=== PATIENT | male | born 1955 | race Caucasian/White ===

== ENCOUNTER → 2018-02-15 | Outpatient (CLI) | payer MEDICARE, OTHER ==
[2015-10-09 11:30] VITALS: BP 105/61
[~2018-02-15] MED LIST: ALBU2.5V8 INH; AMIT25TA PO; ATOR40TA59 PO; DICL75TA PO; DOCU-109 PO; DULO60CA6 PO; GABA800T3 PO; LISI1TAB5 PO; LORA1TAB PO; METH-38 PO; MIRT15TA3 PO; NAPR500T8 PO; OXYC1TAB15 PO; TEST200V3 IM; TRAM50TA PO
--- NOTE | 2018-02-15 14:03 | RAD ---
EXAM: Lumbosacral spine, 6 views. HISTORY: Pain. COMPARISON: None. FINDINGS: Frontal, lateral, bilateral oblique, flexion and extension and coned sacral views of the lumbar spine are obtained. There is moderate levoscoliosis centered at L3. There is severe degenerative endplate remodeling with disc space narrowing and osteophytosis along the right aspect of L3-L4. This corresponds with the level of maximum scoliotic curvature. There is slight sacralization of the left L5 transverse process and articulation with the underlying sacrum, a normal variant. There is facet arthropathy at all levels. There is no significant listhesis. There is no fracture. IMPRESSION: 1. Moderate levoscoliosis centered at L3. There is severe degenerative change along the right aspect of L3-L4, corresponding with the level of maximum sclerotic curvature. 2. Multilevel degenerative change throughout the remainder of the lumbar spine, described above. Electronically signed by: Leatha Argueta MD (02/15/2018 1:58 PM) [facility]
== END | disposition home or self-care (01) ==
LOC: RAD 12:19
PROVIDERS: ATTEND Neurological Surgery
DX: M47.26 Other spondylosis with radiculopathy, lumbar region (principal); M41.86 Other forms of scoliosis, lumbar region; M43.27 Fusion of spine, lumbosacral region; M12.88 Other specific arthropathies, not elsewhere classified, other specified site; M48.061 Spinal stenosis, lumbar region without neurogenic claudication
CPT/HCPCS: 72114

== ENCOUNTER → 2018-03-13 | Outpatient (CLI) | payer MEDICARE, OTHER ==
[2015-10-09 11:30] VITALS: BP 105/61
[~2018-03-13] MED LIST changes: -GABA800T3 PO; +GABA800T5 PO; +OXYC1TAB22 PO
--- NOTE | 2018-03-13 11:27 | EKG ---
[facility] [address] [place] [address] Test Date: 2018-03-13 Test Time: 11:24:52 Pat Name: JERI BUTLER Department: Room: Gender: M Primer Boxer: TV : 1955 Requested By: NARINDER WATTS Order Number: [id number] Reading MD: Clay Avendano MD Measurements Intervals [place] Rate: 65 P: [place]: QRS: 41 QRSD: 86 T: 61 QT: 394 QTc: 410 Interpretive Statements SR PAC'S NON-SPECIFIC ST/T CHANGES Electronically Signed On 03-14-2018 10:41:05 [employer] by Clay Avendano MD
[2018-03-13 12:02] LABS: BASO # 0.1 x10^3/uL (0.0-0.2); BASO % 1 % (0-3); EOS # 0.3 x10^3/uL (0.0-0.7); EOS % 4 % (0-3); HEMATOCRIT 55.8 % (39.0-53.0); HEMOGLOBIN 18.7 g/dL (13.0-17.5); LYMPH # 1.4 x10^3/uL (1.0-4.8); LYMPH % 21 % (24-48); MEAN CORPUSCULAR HEMOGLOBIN 30 pg (25-35); MEAN CORPUSCULAR HGB CONC 34 g/dL (31-37); MEAN CORPUSCULAR VOLUME 88 fL (79-100); MONO # 0.5 x10^3/uL (0.0-1.1); MONO % 8 % (0-9); NEUT # 4.5 x10^3uL (1.8-7.7); NEUT % 67 % (31-73); PLATELET COUNT 188 x10^3/uL (140-400); RED BLOOD COUNT 6.33 x10^6/uL (4.30-5.70); RED CELL DISTRIBUTION WIDTH 14.5 % (11.5-14.5); WHITE BLOOD COUNT 6.8 x10^3/uL (4.0-11.0)
[2018-03-13 12:12] LABS: PROTHROMBIN TIME PATIENT 13.3 SEC (11.7-14.0)
[2018-03-13 12:48] LABS: ALBUMIN 3.7 g/dL (3.4-5.0); CALCIUM 9.5 mg/dL (8.5-10.1); CREATININE 0.9 mg/dL (0.7-1.3); GFR 85.8; POTASSIUM 3.9 mmol/L (3.5-5.1); TOTAL BILIRUBIN 0.8 mg/dL (0.2-1.0); TOTAL PROTEIN 7.4 g/dL (6.4-8.2)
--- NOTE | 2018-03-13 14:20 | RAD ---
Chest, PA and Lateral: Technique: PA and lateral views of the chest were obtained. History: Preop lumbar surgery.. Comparison: None. Findings: The heart and pulmonary vasculature appear within normal limits. The lungs are clear. The pleural margins are clear. Moderate degenerative changes thoracic spine. Impression: No acute chest process is seen. Electronically signed by: Bassem Combs MD (03/13/2018 2:16 PM) [place] [id number]
--- NOTE | 2018-03-14 14:27 | NUR ---
PATIENT'S EKG 03/13/2018 WAS AT [facility] AND WAS FEELING DIZZY WHEN LAYING DOWN AND HE WENT TO SEE YESTERDAY AFTER PRE - TESTING AND BROUGHT COPY OF EKG FOR PCP TO REVIEW. FAXED PRE OP LABS AND CXR REPORTS TO DR. VICTORIA'S OFFICE 03/5018 AT 0902. CALLED AT 1220 03/14/2018 AND SAID PATIENT IS CLEAR FOR SURGERY. HE FAXED MEDICAL CLEARANCE NOTES. FAXED IT TO 'S ' OFFICE AT 0249 03/14/2018. JUST LEFT A MESSAGE ON BENTLEY DELEON RN IN 'S OFFICE OF ABOVE.
== END | disposition home or self-care (01) ==
LOC: SURGPAT 10:43
PROVIDERS: ATTEND Neurological Surgery
DX: Z01.818 Encounter for other preprocedural examination (principal); M48.061 Spinal stenosis, lumbar region without neurogenic claudication; M54.16 Radiculopathy, lumbar region; M41.86 Other forms of scoliosis, lumbar region; M47.894 Other spondylosis, thoracic region; Z88.5 Allergy status to narcotic agent
CPT/HCPCS: 36415; 71046; 80053; 85025; 85610; 85730; 87641; 93005

== ENCOUNTER 2018-04-05 07:48 | Inpatient (IN) | payer MEDICARE, OTHER ==
--- NOTE | 2018-04-04 16:24 | PREOP HP ---
DATE OF SERVICE: 04/05/2018 HISTORY OF PRESENT ILLNESS: The patient is a pleasant 63-year-old who has had a long history of difficulties with his lower back. He reports that he underwent surgery in and is well, underwent lumbar microdecompressive surgery in 09/2015. His current problem is progressive lower back pain on the right side, which radiates into his right leg diffusely. The pain is largely in the buttock and lateral thigh and leg to include his entire right foot. Standing and walking markedly increases his pain. Sitting gives him some relief. 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 He uses a 10-pound lifting restriction to help him with his back. He tries to continually support his back with his hands. He says when his pain is severe, he can sit for a few minutes and gain some relief and then is able to stand again for a short time. He has been taking oxycodone 10. He uses a lumbar brace, which he says does not feel as effective. He says that the more he stands, the worst his right leg pain becomes. PAST MEDICAL HISTORY: Arthritis, asthma and hypertension. PAST SURGICAL HISTORY: Lumbar surgery in , eye surgery in lumbar decompression L3-L4 and L4-L5 in 09/2015. FAMILY HISTORY: Cancer, heart problems and disease, hypertension, ID at an early age and spine problems. SOCIAL HISTORY: Single. Does not exercise. Smokes 1 pack per day and has for 20 years. Quit drinking 4 years ago. ALLERGIES: No known drug allergies. CURRENT MEDICATIONS: Percocet, atorvastatin, duloxetine, lisinopril, gabapentin, lorazepam, tramadol, diclofenac, naproxen, amitriptyline, mirtazapine, Ventolin, testosterone and [place]. REVIEW OF SYSTEMS: A 12-point review of systems was obtained and is noncontributory except for that mentioned above. PHYSICAL EXAMINATION: NEUROSURGERY EXAMINATION: GENERAL: He is alert, pleasant, in no acute distress as long as he is sitting. HEAD: Normocephalic and atraumatic. SKIN: Warm and dry, well-healed lumbar incision. MUSCULOSKELETAL: Lumbar paraspinal muscle bulk is normal, restricted range of motion of lumbar spine, moderate tenderness of lower lumbar spine with palpation, normal range of motion of the lower extremities bilaterally. EXTREMITIES: No clubbing, cyanosis or edema. NEUROLOGIC: Alert and oriented x 3, normal recent and remote memory, strength 5/5 in bilateral lower extremities except for 4+/5 right hip flexor, sensory was intact to light touch in the lower extremities bilaterally except for diffuse decrease involving the lateral thigh and anterior lateral posterior leg on the right. Reflexes were trace and symmetric in bilateral lower extremities, negative straight leg raising bilaterally, markedly forward stooped gait tending to lean to the right. IMAGING: I reviewed plain lumbar spine films and a lumbar MRI scan. There is a transitional anatomy such that L5-S1 on the plain lumbar spine film is identified as the S1-S2 on the MRI scan. Using the same nomenclature of the MRI scan, there is scoliotic deformity, which is centered at L4 as well seen on the plain lumbar spine films. At L4-L5 and L5-S1, there are postoperative changes on the right side. He has developed severe lumbar spinal stenosis at L4-L5. There is moderate stenosis at L5-S1. Changes at L4-L5 are worsened considerably when compared to the previous scan. ASSESSMENT/ PLAN: The patient is having a relatively severe right radiculopathy along with markedly increasing back pain. On imaging studies in addition to marked right-sided scoliotic deformity, he has a severe lumbar spinal stenosis at L4-L5 and moderate stenosis at L5-S1. He will require laminectomy at L4-L5 to fully decompress the dura and nerve root at that level. Because of scoliotic deformity, he is also going to require an instrumented fusion extending from L4-S1 with posterior instrumentation and posterolateral fusion. There is severe foraminal narrowing at L4-L5 and I would accompany the posterior instrumented fusion with anterior diskectomy and fusion at that level. I did speak with him about the surgery and the risks. I spoke about the expected postoperative course. He understands. We will make the arrangements. NARINDER WATTS MD DR: JOSELO/lynda JOB#: [id number] / [id number] PUSH[facility]
[~2018-04-05] VITALS: Ht 177.8 cm; Wt 88.5 kg
[2018-04-05] VITALS (9 sets, daily range): BP systolic 87–129; BP diastolic 51–76
[~2018-04-05 07:48] MED LIST changes: +BACITRACIN 50,000 UNIT in IV NORMAL SALINE 1000ML BAG 1,000 ML IRR ONE; +BUPIVAC MPF-EPI 0.5%-1:200000 30 ML VIAL. ONE; +GELATIN SPONGE SIZE 12-7MM SPONGE. TP ONE; +HYDROmorphone 2 MG/ML VIAL IV PRN; +KETOROLAC 60 MG/2 ML INJ FOR OR. ONE; +LIDOCAINE 1% PF 2 ML VIAL. ID PRN; +ONDANSETRON PF 4 MG/2 ML VIAL. IV PRN; +PROCHLORPERAZINE 10 MG/2 ML VIAL. IV PRN; +THROMBIN TOPICAL 20,000 UNIT SPRAY.SYRN KIT TP ONE; +fentaNYL PF VIAL 100 MCG/2 ML VIAL IV PRN
[2018-04-05] MEDS: IV RINGERS,LACTATED 1000ML 1,000 ML IV SCH ×2 (08:44→18:01)
[2018-04-05] MEDS ORDERED: ROCURONIUM 50 MG/5 ML VIAL. ONE (10:23)
[2018-04-05] MEDS ORDERED: PROPOFOL 50 ML IV ONE ×3 (10:24→15:42)
[2018-04-05] MEDS ORDERED: LIDOCAINE 2% PF 5 ML VIAL. ONE (10:24)
[2018-04-05] MEDS ORDERED: DEXAMETHASONE SOD PHOS 20 MG/5 ML VIAL. ONE (10:24)
[2018-04-05] MEDS ORDERED: REMIFENTANIL 2 MG VIAL. IV ONE ×2 (10:24→13:37)
[2018-04-05] MEDS ORDERED: PROPOFOL 20 ML IV ONE (10:24)
[2018-04-05] MEDS ORDERED: fentaNYL PF VIAL 250 MCG/5 ML VIAL ONE (10:24)
[2018-04-05] MEDS ORDERED: PHENYLEPHRINE 10 MG/ML VIAL. ONE ×2 (10:24)
[2018-04-05] MEDS ORDERED: ONDANSETRON PF 4 MG/2 ML VIAL. ONE (10:24)
[2018-04-05] MEDS ORDERED: MIDAZOLAM HCL/PF 2 MG/2 ML VIAL. ONE (10:24)
--- NOTE | 2018-04-05 10:31 | RAD ---
CT study of the lumbar spine without contrast Clinical indications: Lumbar stenosis. Low back pain. TECHNIQUE: Noncontrast helical CT scanning of the lumbar spine was performed. Multiplanar 2-D reconstructions were generated. PQRS compliance Statement One or more of the following individualized dose reduction techniques were utilized for this study: 1. Automated exposure control 2. Adjustment of the mA and/or kV according to patient size 3. Use of iterative reconstruction technique COMPARISON: No previous CT study. FINDINGS: There is moderate levoscoliosis of the lumbar spine. There is mild lateral subluxation of L3 on L4 of 6 mm and mild left lateral subluxation of L4 and L5 7 mm. There is a pelvic tilt downward towards the right side. The transverse processes are intact. No compression fracture or discitis or lytic process is evident. No anterolisthesis is seen. There is a unilateral spondylolysis of the right side of L4. At T12-L1, no focal disc protrusion or spinal canal stenosis or neural foraminal narrowing is seen. At L1-L2, there is a mild diffuse disc protrusion with a more prominent left side extending into the left lateral neural foramen. Mild narrowing of left neural foramen. No significant spinal canal stenosis is evident. At L2-L3, mild retrolisthesis is seen. There is a mild diffuse disc protrusion and degenerative endplate spurring. There is facet arthropathy and ligamentum flavum hypertrophy. These findings combine to form a mild spinal canal stenosis. Mild narrowing of the neural foramina is seen bilaterally. At L3-L4, moderate to severe degenerative disc space narrowing and moderate degenerative endplate spurring is seen. Degenerative vacuum disc phenomenon is seen. There is severe subchondral sclerosis and moderate subchondral cyst formation. There is a moderate diffuse disc protrusion and moderate degenerative endplate spurring. There is significant facet arthropathy and ligamentum flavum hypertrophy. These findings combine to form a moderate to severe spinal canal stenosis. There is moderate narrowing of the neural foramina bilaterally. At L4-5, moderate degenerative disc space narrowing and moderate degenerative endplate spurring is seen. Degenerative vacuum disc phenomenon is seen. There is focal protrusion of herniated vacuum disc material within the right side of the spinal canal including the lateral recess just posterior to the L4 vertebral body extending into the right neural foramen. As mentioned previously, there is a unilateral right-sided spondylolysis of L4. There is prominent facet arthropathy bilaterally along with ligamentum flavum hypertrophy. These findings combine to form a severe spinal canal stenosis. There is severe narrowing of the left neural foramen and moderate narrowing of the right neural foramen. At L5-S1, there is mild diffuse disc protrusion and degenerative endplate spurring more prominent on the right side which extends into the inferior aspect of the right neural foramen. There is moderate narrowing of the right neural foramen. There is mild narrowing of the left neural foramen. Facet arthropathy is seen at this level. Ligamentum flavum hypertrophy is seen. These findings combine to form a mild spinal canal stenosis. There is degenerative osteoarthritis of both SI joints without erosive arthropathy or ankylosis. No insufficiency fracture of the sacrum is seen. IMPRESSION: Moderate levoscoliosis. Degenerative lumbar spondylosis resulting in multilevel spinal canal stenosis and neural foraminal narrowing as discussed above. See discussion above for each level. Unilateral spondylolysis on the right side of L4. No anterolisthesis of L4-5 is seen. Herniation of vacuum disc material on the right side at L4-5. No compression fracture or discitis or lytic process is seen. Electronically signed by: Demetrius Patel MD (04/05/2018 10:28 AM) [facility]
[2018-04-05] MEDS ORDERED: GLYCOPYRROLATE 1 MG/5 ML VIAL. ONE (12:06)
[2018-04-05] MEDS ORDERED: ceFAZolin SODIUM 1 GM VIAL ONE ×2 (15:10)
[2018-04-05] MEDS ORDERED: GELATIN SPONGE SIZE 12-7MM SPONGE. TP ONE ×2 (15:30→17:15)
[2018-04-05] MEDS ORDERED: REMIFENTANIL 1 MG VIAL. IV ONE (16:51)
[2018-04-05] MEDS ORDERED: POTASSIUM CL 20MEQ D5-0.45NACL 1,000 ML IV SCH (17:04)
[2018-04-05] MEDS ORDERED: diphenhydrAMINE 50 MG/ML VIAL IV PRN (17:15)
[2018-04-05] MEDS ORDERED: ACETAMINOPHEN 325 MG TABLET. PO PRN (17:15)
[2018-04-05] MEDS ORDERED: MAGNESIUM HYDROXIDE 2,400 MG/30 ML ORAL.SUSP. PO PRN (17:15)
[2018-04-05] MEDS ORDERED: ZOLPIDEM 5 MG TABLET. PO PRN (17:15)
[2018-04-05] MEDS ORDERED: NALOXONE 0.4 MG/ML VIAL. IV PRN (17:15)
[2018-04-05] MEDS ORDERED: ALBUTEROL SULFATE 2.5 MG/3 ML NEBU. INH PRN (17:15)
[2018-04-05] MEDS ORDERED: CALCIUM CARBONATE 500 MG TAB.CHEW PO PRN (17:15)
[2018-04-05] MEDS ORDERED: MAG HYDROX/ALUMINUM HYD/SIMETH 30 ML ORAL.SUSP PO PRN (17:15)
[2018-04-05] MEDS ORDERED: ONDANSETRON PF 4 MG/2 ML VIAL. IV PRN ×2 (17:15→18:15)
[2018-04-05] MEDS ORDERED: 0.9 % SODIUM CHLORIDE 10 ML DISP.SYRIN. IV PRN (17:15)
[2018-04-05] MEDS ORDERED: diphenhydrAMINE HCL 25 MG CAPSULE PO PRN (17:15)
[2018-04-05] MEDS ORDERED: IV RINGERS,LACTATED 1000ML 1,000 ML IV SCH (18:03)
[2018-04-05] MEDS ORDERED: PROCHLORPERAZINE 10 MG/2 ML VIAL. IV PRN (18:15)
[2018-04-05] MEDS ORDERED: LIDOCAINE 1% PF 2 ML VIAL. ID PRN (18:15)
[2018-04-05] MEDS: fentaNYL PF VIAL 100 MCG/2 ML VIAL IV PRN ×3 (18:27→20:53)
[2018-04-05] MEDS: PROCHLORPERAZINE 10 MG/2 ML VIAL. IV PRN ×2 (18:27→18:42)
[2018-04-05] MEDS ORDERED: HYDROmorphone 2 MG/ML VIAL IV PRN (18:30)
[2018-04-05] MEDS ORDERED: fentaNYL PF VIAL 100 MCG/2 ML VIAL IV PRN (18:30)
--- NOTE | 2018-04-05 19:00 | NUR ---
Rec'd from PACU. "Not sure where I'm at or what I'm doing now." C/o back pain, falls asleep quickly. Assisted to right side per his request. Midline lumbar dressing needs reinforcing. Has red horizontal line across chest, eyes are puffy. VSS. Call light in reach.
[2018-04-05] MEDS: METHOCARBAMOL 750 MG TABLET PO SCH (20:53)
[2018-04-05] MEDS: DOCUSATE SODIUM 100 MG CAPSULE. PO SCH (20:53)
[2018-04-05] MEDS: GABAPENTIN 400 MG CAPSULE. PO SCH (20:53)
[2018-04-05] MEDS: ATORVASTATIN CALCIUM 40 MG TABLET. PO SCH (20:53)
[2018-04-05] MEDS: MIRTAZAPINE 15 MG TABLET PO SCH (21:06)
[2018-04-05] MEDS: ceFAZolin SODIUM 1 GM in IV DEXTROSE 5% 50 ML IV SCH (22:36)
[2018-04-06] VITALS (7 sets, daily range): BP systolic 84–112; BP diastolic 42–70
--- NOTE | 2018-04-06 06:06 | NUR ---
Stood at bedside to void, denies numbness to legs. Voided 550cc dark yellow urine. Demonstrates IS at 3000cc. Dressing is dry.
[2018-04-06] MEDS: ceFAZolin SODIUM 1 GM in IV DEXTROSE 5% 50 ML IV SCH ×2 (06:15→13:32)
[2018-04-06] MEDS: DULoxetine HCL 30 MG CAPSULE.DR PO SCH (08:14)
[2018-04-06] MEDS: GABAPENTIN 400 MG CAPSULE. PO SCH ×3 (08:14→20:54)
[2018-04-06] MEDS: hydroCHLOROthiazide 12.5 MG CAPSULE PO SCH (08:15)
[2018-04-06] MEDS: LISINOPRIL 20 MG TABLET PO SCH (08:15)
[2018-04-06] MEDS: METHOCARBAMOL 750 MG TABLET PO SCH ×3 (08:15→20:54)
[2018-04-06] MEDS: DOCUSATE SODIUM 100 MG CAPSULE. PO SCH ×2 (08:15→20:53)
[2018-04-06] MEDS: oxyCODONE/APAP 10/325 1 TAB TABLET PO PRN ×3 (08:16→19:43)
--- NOTE | 2018-04-06 12:34 | PDOC ---
PROGRESS NOTES Subjective Subjective POD #1 resting in bed has been up with PT back/ incisional pain , controlled with medications Objective Objective Vital Signs Date Time Temp Pulse Resp B/P (MAP) Pulse Ox O2 Delivery O2 Flow Rate FiO2 04/06/18 12:08 Room Air 04/06/18 11:13 98.5 76 16 92/48 (63) 98.5 04/06/18 06:32 94 04/05/18 20:53 2.0 Intake and Output 04/06/18 06:59 Intake Total 4663 ml Output Total 2050 ml Balance 2613 ml Intake Oral 240 ml IV Total 4000 ml Blood Product IV Normal Saline Flush 423 ml Output Urine Total 1650 ml Stool Total 0 ml Estimated Blood Loss 400 ml Physical Exam General: Alert, Oriented X3, Cooperative MUSCULOSKELETAL: Other Neuro: Normal speech, Other (Strength 5/5 in BLE) Skin: Other (Dressing C,D ,I, flat) Plan Plan of Care encouraged increased activity as tolerated PT Brace when up likely dc tomorrow Comment Review of Relevant I have reviewed the following items triston (where applicable) has been applied. Medications Current Medications Bacitracin 35546 unit/Sodium Chloride 1,000 ml @ 1,000 mls/hr 1X ONCE IRR Last administered on 04/05/18at 11:47; Start 04/05/18 at 06:00; Stop 04/05/18 at 06:59; Status DC Ondansetron HCl (Zofran) 4 mg PRN Q6HRS PRN IV NAUSEA/VOMITING; Start 04/05/18 at 07:00; Stop 04/05/18 at 18:00; Status DC Fentanyl Citrate (Fentanyl 2ml Vial) 25 mcg PRN Q5MIN PRN IV MILD PAIN; Start 04/05/18 at 07:00; Stop 04/05/18 at 18:00; Status DC Fentanyl Citrate (Fentanyl 2ml Vial) 50 mcg PRN Q5MIN PRN IV MODERATE TO SEVERE PAIN; Start 04/05/18 at 07:00; Stop 04/05/18 at 18:00; Status DC Ringer's Solution 1,000 ml @ 30 mls/hr Q24H IV Last administered on 04/05/18at 18:01; Start 04/05/18 at 07:00; Stop 04/05/18 at 18:10; Status DC Lidocaine HCl (Xylocaine-Mpf 1% 2ml Vial) 2 ml PRN 1X PRN ID PRIOR TO IV START ; Start 04/05/18 at 07:00; Stop 04/05/18 at 18:00; Status DC Hydromorphone HCl (Dilaudid) 0.5 mg PRN Q10MIN PRN IV SEV PAIN, Second choice; Start 04/05/18 at 07:00; Stop 04/05/18 at 18:00; Status DC Prochlorperazine Edisylate (Compazine) 5 mg PACU PRN PRN IV NAUSEA, MRX1; Start 04/05/18 at 07:00; Stop 04/05/18 at 18:00; Status DC Cefazolin Sodium/ Dextrose 50 ml @ 100 mls/hr 1X PREOP PRN IV PRIOR TO PROCEDURE Last administered on 04/05/18at 15:30; Start 04/05/18 at 06:00; Stop at 18:00; Status DC Bupivacaine HCl/ Epinephrine Bitart (Sensorcain-Mpf Epi 0.5%-[id number]) 30 ml STK -MED ONCE .ROUTE Last administered on 04/05/18at 11:47; Start 04/05/18 at 07:05 ; Stop 04/05/18 at 07:06; Status DC Ketorolac Tromethamine (Toradol For Or Only) 60 mg STK-MED ONCE .ROUTE Last administered on 04/05/18at 11:47; Start 04/05/18 at 07:05; Stop 04/05/18 at 07:06 ; Status DC Thrombin 20,000 unit STK-MED ONCE TP Last administered on 04/05/18at 11:47; Start 04/05/18 at 07:05; Stop 04/05/18 at 07:06; Status DC Gelatin (Gelfoam Size 12-7mm) 2 each 1X ONCE TP Last administered on at 11:47; Start 04/05/18 at 07:45; Stop 04/05/18 at 07:46; Status DC Rocuronium [place] (Zemuron) 50 mg STK-MED ONCE .ROUTE ; Start 04/05/18 at 10:23 ; Stop 04/05/18 at 10:24; Status DC Midazolam HCl (Versed) 2 mg STK-MED ONCE .ROUTE ; Start 04/05/18 at 10:24; Stop 04/05/18 at 10:25; Status DC Fentanyl Citrate (Fentanyl 5ml Vial) 250 mcg STK-MED ONCE .ROUTE ; Start at 10:24; Stop 04/05/18 at 10:25; Status DC Remifentanil HCl (Ultiva) 2 mg STK-MED ONCE IV ; Start 04/05/18 at 10:24; Stop 04/05/18 at 10:25; Status DC Propofol 50 ml @ As Directed STK-MED ONCE IV ; Start 04/05/18 at 10:24; Stop at 10:25; Status DC Propofol 20 ml @ As Directed STK-MED ONCE IV ; Start 04/05/18 at 10:24; Stop at 10:25; Status DC Lidocaine HCl (Lidocaine Pf 2% Vial) 5 ml STK-MED ONCE .ROUTE ; Start 04/05/18 at 10:24; Stop 04/05/18 at 10:25; Status DC Ondansetron HCl (Zofran) 4 mg STK-MED ONCE .ROUTE ; Start 04/05/18 at 10:24; Stop 04/05/18 at 10:25; Status DC Dexamethasone Sodium Phosphate (Decadron) 20 mg STK-MED ONCE .ROUTE ; Start at 10:24; Stop 04/05/18 at 10:25; Status DC Phenylephrine HCl (Vance-Synephrine Inj) 10 mg STK-MED ONCE .ROUTE ; Start at 10:24; Stop 04/05/18 at 10:25; Status DC Phenylephrine HCl (Vance-Synephrine Inj) 10 mg STK-MED ONCE .ROUTE ; Start at 10:24; Stop 04/05/18 at 10:25; Status DC Glycopyrrolate (Robinul) 1 mg STK-MED ONCE .ROUTE ; Start 04/05/18 at 12:06; Stop 04/05/18 at 12:07; Status DC Propofol 50 ml @ As Directed STK-MED ONCE IV ; Start 04/05/18 at 13:33; Stop at 13:34; Status DC Remifentanil HCl (Ultiva) 2 mg STK-MED ONCE IV ; Start 04/05/18 at 13:37; Stop 04/05/18 at 13:38; Status DC Cefazolin Sodium (Ancef) 1 gm STK-MED ONCE .ROUTE ; Start 04/05/18 at 15:10; Stop 04/05/18 at 15:11; Status DC Cefazolin Sodium (Ancef) 1 gm STK-MED ONCE .ROUTE ; Start 04/05/18 at 15:10; Stop 04/05/18 at 15:11; Status DC Gelatin (Gelfoam Size 12-7mm) 2 each 1X ONCE TP Last administered on at 17:09; Start 04/05/18 at 15:30; Stop 04/05/18 at 15:31; Status DC Propofol 50 ml @ As Directed STK-MED ONCE IV ; Start 04/05/18 at 15:42; Stop at 15:43; Status DC Remifentanil HCl (Ultiva) 1 mg STK-MED ONCE IV ; Start 04/05/18 at 16:51; Stop 04/05/18 at 16:52; Status DC Albuterol Sulfate (Ventolin Neb Soln) 8.5 mg PRN Q6HRS PRN INH SHORTNESS OF BREATH; Start 04/05/18 at 17:15 Atorvastatin Calcium (Lipitor) 40 mg QHS PO Last administered on 04/05/18at 20: 53; Start 04/05/18 at 21:00 Duloxetine HCl (Cymbalta) 60 mg DAILY PO Last administered on 04/06/18at 08:14; Start 04/06/18 at 09:00 Gabapentin (Neurontin) 800 mg TID PO Last administered on 04/06/18at 08:14; Start 04/05/18 at 21:00 Lisinopril (Prinivil) 20 mg DAILY PO Last administered on 04/06/18at 08:15; Start 04/06/18 at 09:00 Mirtazapine (Remeron) 15 mg QHS PO Last administered on 04/05/18at 21:06; Start 04/05/18 at 21:00 Gelatin (Gelfoam Size 12-7mm) 2 each 1X ONCE TP Last administered on at 17:17; Start 04/05/18 at 17:15; Stop 04/05/18 at 17:18; Status DC Fentanyl Citrate (Fentanyl 2ml Vial) 50 mcg PRN Q2HR PRN IV SEVERE PAIN Last administered on 04/05/18at 20:53; Start 04/05/18 at 17:15 Acetaminophen (Tylenol) 650 mg PRN Q6HRS PRN PO MILD PAIN / TEMP; Start at 17:15 Al Hydroxide/Mg Hydroxide (Mylanta Plus Xs) 30 ml PRN Q3HRS PRN PO HEARTBURN / GAS; Start 04/05/18 at 17:15 Calcium Carbonate/ Glycine (Tums) 500 mg PRN Q3HRS PRN PO INDIGESTION; Start at 17:15 Diphenhydramine HCl (Benadryl) 25 mg PRN Q6HRS PRN PO ITCHING; Start 04/05/18 at 17:15 Diphenhydramine HCl (Benadryl) 25 mg PRN Q6HRS PRN IV ITCHING; Start 04/05/18 at 17:15 Zolpidem Tartrate (Ambien) 5 mg PRN QHS PRN PO INSOMNIA, MAY REPEAT IN 1HR; Start 04/05/18 at 17:15 Naloxone HCl (Narcan) 0.1 mg PRN Q2MIN PRN IV ADMIN; Start 04/05/18 at 17:15 Sodium Chloride (Normal Saline Flush) 3 ml QSHIFT PRN IV AFTER MEDS AND BLOOD DRAWS; Start 04/05/18 at 17:15 Potassium Chloride/Dextrose/ Sod Cl 1,000 ml @ 75 mls/hr [id number] IV Last administered on 04/05/18at 20:49; Start 04/05/18 at 17:04; Stop 04/06/18 at 08:24 ; Status DC Methocarbamol (Robaxin) 750 mg TID PO Last administered on 04/06/18at 08:15; Start 04/05/18 at 21:00 Docusate Sodium (Colace) 100 mg BID PO Last administered on 04/06/18at 08:15; Start 04/05/18 at 21:00 Magnesium Hydroxide (Milk Of Magnesia) 2,400 mg PRN Q12HR PRN PO CONSTIPATION; Start 04/05/18 at 17:15 Ondansetron HCl (Zofran) 4 mg PRN Q6HRS PRN IV NAUESA, 1ST CHOICE; Start at 17:15 Cefazolin Sodium 1 gm/Dextrose 50 ml @ 100 mls/hr Q8HRS IV Last administered on 04/06/18at 06:15; Start 04/05/18 at 22:00; Stop 04/06/18 at 14:29 Oxycodone/ Acetaminophen (Percocet 10/325) 1 tab PRN Q4HRS PRN PO SEVERE PAIN Last administered on 04/06/18at 12:08; Start 04/05/18 at 17:15 Hydrochlorothiazide (Microzide) 12.5 mg DAILY PO Last administered on at 08:15; Start 04/06/18 at 09:00 Ondansetron HCl (Zofran) 4 mg PRN Q6HRS PRN IV NAUSEA/VOMITING; Start 04/05/18 at 18:15; Stop 04/06/18 at 18:14 Ringer's Solution 1,000 ml @ 30 mls/hr Q24H IV Last administered on 04/05/18at 18:12; Start 04/05/18 at 18:03; Stop 04/06/18 at 06:02; Status DC Lidocaine HCl (Xylocaine-Mpf 1% 2ml Vial) 2 ml PRN 1X PRN ID PRIOR TO IV START ; Start 04/05/18 at 18:15; Stop 04/05/18 at 22:00; Status DC Prochlorperazine Edisylate (Compazine) 5 mg PACU PRN PRN IV NAUSEA, MRX1; Start 04/05/18 at 18:15; Stop 04/05/18 at 18:23; Status DC Fentanyl Citrate (Fentanyl 2ml Vial) 25 mcg PRN Q5MIN PRN IV MILD PAIN; Start 04/05/18 at 18:30; Stop 04/06/18 at 18:29 Fentanyl Citrate (Fentanyl 2ml Vial) 50 mcg PRN Q5MIN PRN IV MODERATE TO SEVERE PAIN Last administered on 04/05/18at 18:42; Start 04/05/18 at 18:30; Stop 04/06/18 at 18:29 Hydromorphone HCl (Dilaudid) 0.5 mg PRN Q10MIN PRN IV SEV PAIN, Second choice; Start 04/05/18 at 18:30; Stop 04/06/18 at 18:29 Prochlorperazine Edisylate (Compazine) 5 mg PACU PRN PRN IV NAUSEA, MRX1 Last administered on 04/05/18at 18:42; Start 04/05/18 at 18:30; Stop 04/06/18 at 18:29 Active Scripts Active Reported Percocet 10-325 Mg Tablet (Oxycodone/Acetaminophen) 1 Each Tablet 1 Tab PO PRN Q6HRS PRN Proair Hfa Inhaler (Albuterol Sulfate) 8.5 Gm Hfa.aer.ad 1 Puff INH PRN Q6HRS PRN Not used while in hosp. May resume at home as directed. Testosterone Cypionate 200 Mg/1 Ml Vial 1 Ml IM WEEKLY Not given while in hosp. May resume at home as directed Mirtazapine 15 Mg Tablet 15 Mg PO HS LAST DOSE GIVEN: DATE:10-08-15 TIME:9:00 p.m. NEXT DOSE DUE: DATE:10-09-15 TIME:9:00 p.m. Diclofenac Sodium 75 Mg Tablet.dr 1 Tab PO BID LAST DOSE GIVEN: DATE:10-09-15 TIME:8:30 a.m. NEXT DOSE DUE: DATE:10-09-15 TIME:9:00 p.m. Gabapentin 800 Mg Tablet 800 Mg PO TID LAST DOSE GIVEN: DATE:10-09-15 TIME:8:30 a.m. NEXT DOSE DUE: DATE:10-09-15 TIME:2:00 p.m. Lisinopril-Hctz 20-12.5 Mg Tab (Lisinopril/Hydrochlorothiazide) 1 Each Tablet 1 Tab PO DAILY Not given this a.m. due to low blood pressure. Take blood pressure before taking if systolic 100 or below do not give. Cymbalta (Duloxetine Hcl) 60 Mg Capsule.dr 60 Mg PO DAILY LAST DOSE GIVEN: DATE:10-09-15 TIME:8:30 a.m. NEXT DOSE DUE: DATE:10-10-15 TIME:8:30 a.m. Atorvastatin Calcium 40 Mg Tablet 40 Mg PO DAILY LAST DOSE GIVEN: DATE:10-07-15 TIME:9:00 p.m. NEXT DOSE DUE: DATE:10-09-15 TIME:9:00 p.m. Vitals/I & O Vital Sign - Last 24 Hours 04/05/18 04/05/18 04/05/18 04/05/18 17:45 17:45 18:00 18:15 Temp 99.4 99.4 Pulse 104 74 75 Resp 20 20 20 B/P (MAP) 123/83 112/58 112/58 Pulse Ox 98 98 95 O2 Delivery Mask Simple Mask Simple Mask O2 Flow Rate 10 10 10 10 04/05/18 04/05/18 04/05/18 04/05/18 18:27 18:30 18:42 18:45 Pulse 72 68 Resp 20 20 20 20 B/P (MAP) 114/56 103/57 Pulse Ox 99 96 95 95 O2 Delivery Simple Mask Simple Mask Simple Mask Nasal Cannula O2 Flow Rate 10.0 10 10.0 2 04/05/18 04/05/18 04/05/18 04/05/18 18:50 19:00 19:15 19:30 Temp 97.9 97.9 Pulse 67 73 69 Resp 16 B/P (MAP) 119/68 (85) 104/59 (74) 100/51 (67) Pulse Ox 92 93 95 O2 Delivery Nasal Cannula Nasal Cannula Nasal Cannula O2 Flow Rate 2 2.0 2.0 04/05/18 04/05/18 04/05/18 04/05/18 19:45 20:00 20:15 20:45 Pulse 76 81 75 B/P (MAP) 96/53 (67) 97/59 (72) 104/59 (74) Pulse Ox 93 94 93 O2 Delivery Nasal Cannula O2 Flow Rate 2.0 04/05/18 04/05/18 04/05/18 04/05/18 20:53 21:15 21:25 22:00 Pulse 76 72 Resp 16 16 B/P (MAP) 129/76 (93) 106/59 (75) Pulse Ox 97 O2 Delivery Nasal Cannula O2 Flow Rate 2.0 04/05/18 04/06/18 04/06/18 04/06/18 23:00 03:08 06:32 08:03 Temp 98.8 98.7 98.3 98.8 98.7 98.3 Pulse 90 75 68 Resp 16 20 16 B/P (MAP) 87/65 (72) 106/60 (75) 99/62 (74) Pulse Ox 91 92 94 O2 Delivery Room Air Room Air Room Air Room Air 04/06/18 04/06/18 04/06/18 04/06/18 08:15 08:16 08:21 11:13 Temp 98.5 98.5 Pulse 71 71 76 Resp 16 B/P (MAP) 110/70 110/70 (83) 92/48 (63) O2 Delivery Room Air Room Air 04/06/18 12:08 O2 Delivery Room Air Intake and Output 04/05/18 04/05/18 04/06/18 14:59 22:59 06:59 Intake Total 4240 ml 423 ml Output Total 1500 ml 550 ml Balance 2740 ml -127 ml MATT FOUNTAIN APRN Apr 06, 2018 12:34
[2018-04-06] MEDS: MIRTAZAPINE 15 MG TABLET PO SCH (20:53)
[2018-04-06] MEDS: ATORVASTATIN CALCIUM 40 MG TABLET. PO SCH (20:54)
[2018-04-06] MEDS: fentaNYL PF VIAL 100 MCG/2 ML VIAL IV PRN (20:59)
--- NOTE | 2018-04-06 21:53 | NUR ---
Ambulated in halls w/ walker, SBA, w/o difficulty. Denies numbness. Dressing changed due to drainage. Reporting less back pain after Fentanyl. "That Percocet didn't help much."
[2018-04-07] MEDS: oxyCODONE/APAP 10/325 1 TAB TABLET PO PRN ×4 (02:29→13:46)
[2018-04-07 02:33] VITALS: BP 99/40
[2018-04-07 06:48] VITALS: BP 88/50
--- NOTE | 2018-04-07 06:50 | NUR ---
BP 88/50. Report feeling "light headed" when asked. P74. Percocet given per request. Old drainage present. C/o feeling "wheezy" and "tight." RT nebs given.
[2018-04-07] MEDS: METHOCARBAMOL 750 MG TABLET PO SCH ×2 (08:15→13:46)
[2018-04-07] MEDS: GABAPENTIN 400 MG CAPSULE. PO SCH ×2 (08:15→13:46)
[2018-04-07] MEDS: DULoxetine HCL 30 MG CAPSULE.DR PO SCH (08:15)
[2018-04-07] MEDS: DOCUSATE SODIUM 100 MG CAPSULE. PO SCH (08:16)
[2018-04-07] MEDS: LISINOPRIL 20 MG TABLET PO SCH (08:18)
[2018-04-07] MEDS: hydroCHLOROthiazide 12.5 MG CAPSULE PO SCH (08:18)
[2018-04-07 11:01] VITALS: BP 126/70
--- NOTE | 2018-04-07 12:40 | DISCH ---
DISCHARGE DISCHARGE INFORMATION: CONDITION ON DISCHARGE: Stable CODE STATUS: Code Status: Full LONG TERM: SNF STAY <30 DAYS: Yes HOSPICE: HOSPICE: No HOSPICE EVAL & TREAT: No POST DISCHARGE ORDERS: ACTIVITY ORDERS: Activity as tolerated, Avoid exertion, Progressive ambulation WEIGHT BEARING STATUS: Full weight bearing, As tolerated BATHING ORDERS: Shower-keep dressing dry, No Tub Bath until see Dr. FREITAS AFTER DISCHARGE: Regular WOUND/INCISION CARE: Keep wound/cast CDI, Change dressing OTHER WOUND INSTRUCTIONS: daily dressing changes and as needed, 4x4, medipore FOLLOW-UP: PHYSICIAN FOLLOW-UP: Dr. Watts in 2 weeks [phone] TREATMENT/EQUIPMENT ORDERS: ADAPTIVE EQUIPMENT NEEDED: Walker Physical Therapy For: Evalulation/Treatment DISCHARGE MEDICATIONS: Home Meds Active Scripts Methocarbamol (METHOCARBAMOL) 750 Mg Tablet, 750 MG PO TID for muscle spasms, # 60 TAB Prov:NARINDER WATTS MD 04/07/18 Docusate Sodium (COLACE) 100 Mg Capsule, 100 MG PO BID for constipation, #60 CAP Prov:NARINDER WATTS MD 04/07/18 Reported Medications Oxycodone/Apap 10-325 (PERCOCET 10-325 MG TABLET ) 1 Each Tablet, 1 TAB PO PRN Q6HRS PRN for PAIN, TAB 0 Refills 03/13/18 Albuterol Sulfate (PROAIR HFA INHALER) 8.5 Gm Hfa.aer.ad, 1 PUFF INH PRN Q6HRS PRN for SHORTNESS OF BREATH, INHALER 0 Refills Not used while in hosp. May resume at home as directed. 09/26/15 Testosterone Cypionate (TESTOSTERONE CYPIONATE) 200 Mg/1 Ml Vial, 1 ML IM WEEKLY for testosterone supplement, #10 ML 1 Refill Not given while in hosp. May resume at home as directed 07/29/15 Mirtazapine (MIRTAZAPINE) 15 Mg Tablet, 15 MG PO HS for antidepressant, TAB LAST DOSE GIVEN: DATE:10-08-15 TIME:9:00 p.m. NEXT DOSE DUE: DATE:10-09-15 TIME:9:00 p.m. 07/29/15 Gabapentin (GABAPENTIN) 800 Mg Tablet, 800 MG PO TID for nerve pain, TAB LAST DOSE GIVEN: DATE:10-09-15 TIME:8:30 a.m. NEXT DOSE DUE: DATE:10-09-15 TIME:2:00 p.m. 07/29/15 Lisinopril/Hydrochlorothiazide (LISINOPRIL-HCTZ 20-12.5 MG TAB) 1 Each Tablet, 1 TAB PO DAILY for hypertension, #30 TAB 5 Refills Not given this a.m. due to low blood pressure. Take blood pressure before taking if systolic 100 or below do not give. 07/29/15 Duloxetine Hcl (CYMBALTA) 60 Mg Capsule.dr, 60 MG PO DAILY for antidepressant, CAP LAST DOSE GIVEN: DATE:10-09-15 TIME:8:30 a.m. NEXT DOSE DUE: DATE:10-10-15 TIME:8:30 a.m. 07/29/15 Atorvastatin Calcium (ATORVASTATIN CALCIUM) 40 Mg Tablet, 40 MG PO DAILY for FOR CHOLESTEROL, #30 TAB 0 Refills LAST DOSE GIVEN: DATE:10-07-15 TIME:9:00 p.m. NEXT DOSE DUE: DATE:10-09-15 TIME:9:00 p.m. 07/29/15 Discontinued Reported Medications Diclofenac Sodium (DICLOFENAC SODIUM) 75 Mg Tablet.dr, 1 TAB PO BID for pain relief, #60 TAB 1 Refill LAST DOSE GIVEN: DATE:10-09-15 TIME:8:30 a.m. NEXT DOSE DUE: DATE:10-09-15 TIME:9:00 p.m. 07/29/15 NARINDER WATTS MD Apr 07, 2018 12:40
[2018-04-07] MEDS ORDERED: DOCU-109 PO (12:41)
[2018-04-07] MEDS ORDERED: METH750T2 PO (12:41)
--- NOTE | 2018-04-07 13:09 | PDOC ---
PROGRESS NOTES Subjective Subjective resting in bed pain well controlled with medication back/ incisional pain minimal pain in right groin has been up ambulating with walker Objective Objective Vital Signs Date Time Temp Pulse Resp B/P (MAP) Pulse Ox O2 Delivery O2 Flow Rate FiO2 04/07/18 11:01 98.3 74 16 126/70 (88) Room Air 98.3 04/07/18 06:48 92 04/05/18 20:53 2.0 Intake and Output 04/07/18 07:00 Intake Total 1590 ml Output Total 300 ml Balance 1290 ml Intake Oral 1590 ml Output Urine Total 300 ml Stool Total 0 ml # Voids 3 Physical Exam General: Alert, Oriented X3, Cooperative MUSCULOSKELETAL: Other (APONTE) Skin: Other (incision with bloody drainage noted, oozing ) Plan Plan of Care may dc to SNF f/u 2 weeks Comment Review of Relevant I have reviewed the following items triston (where applicable) has been applied. Medications Current Medications Bacitracin 80873 unit/Sodium Chloride 1,000 ml @ 1,000 mls/hr 1X ONCE IRR Last administered on 04/05/18at 11:47; Start 04/05/18 at 06:00; Stop 04/05/18 at 06:59; Status DC Ondansetron HCl (Zofran) 4 mg PRN Q6HRS PRN IV NAUSEA/VOMITING; Start 04/05/18 at 07:00; Stop 04/05/18 at 18:00; Status DC Fentanyl Citrate (Fentanyl 2ml Vial) 25 mcg PRN Q5MIN PRN IV MILD PAIN; Start 04/05/18 at 07:00; Stop 04/05/18 at 18:00; Status DC Fentanyl Citrate (Fentanyl 2ml Vial) 50 mcg PRN Q5MIN PRN IV MODERATE TO SEVERE PAIN; Start 04/05/18 at 07:00; Stop 04/05/18 at 18:00; Status DC Ringer's Solution 1,000 ml @ 30 mls/hr Q24H IV Last administered on 04/05/18at 18:01; Start 04/05/18 at 07:00; Stop 04/05/18 at 18:10; Status DC Lidocaine HCl (Xylocaine-Mpf 1% 2ml Vial) 2 ml PRN 1X PRN ID PRIOR TO IV START ; Start 04/05/18 at 07:00; Stop 04/05/18 at 18:00; Status DC Hydromorphone HCl (Dilaudid) 0.5 mg PRN Q10MIN PRN IV SEV PAIN, Second choice; Start 04/05/18 at 07:00; Stop 04/05/18 at 18:00; Status DC Prochlorperazine Edisylate (Compazine) 5 mg PACU PRN PRN IV NAUSEA, MRX1; Start 04/05/18 at 07:00; Stop 04/05/18 at 18:00; Status DC Cefazolin Sodium/ Dextrose 50 ml @ 100 mls/hr 1X PREOP PRN IV PRIOR TO PROCEDURE Last administered on 04/05/18at 15:30; Start 04/05/18 at 06:00; Stop at 18:00; Status DC Bupivacaine HCl/ Epinephrine Bitart (Sensorcain-Mpf Epi 0.5%-1:[id number]) 30 ml STK -MED ONCE .ROUTE Last administered on 04/05/18at 11:47; Start 04/05/18 at 07:05 ; Stop 04/05/18 at 07:06; Status DC Ketorolac Tromethamine (Toradol For Or Only) 60 mg STK-MED ONCE .ROUTE Last administered on 04/05/18at 11:47; Start 04/05/18 at 07:05; Stop 04/05/18 at 07:06 ; Status DC Thrombin 20,000 unit STK-MED ONCE TP Last administered on 04/05/18at 11:47; Start 04/05/18 at 07:05; Stop 04/05/18 at 07:06; Status DC Gelatin (Gelfoam Size 12-7mm) 2 each 1X ONCE TP Last administered on at 11:47; Start 04/05/18 at 07:45; Stop 04/05/18 at 07:46; Status DC Rocuronium De Berry (Zemuron) 50 mg STK-MED ONCE .ROUTE ; Start 04/05/18 at 10:23 ; Stop 04/05/18 at 10:24; Status DC Midazolam HCl (Versed) 2 mg STK-MED ONCE .ROUTE ; Start 04/05/18 at 10:24; Stop 04/05/18 at 10:25; Status DC Fentanyl Citrate (Fentanyl 5ml Vial) 250 mcg STK-MED ONCE .ROUTE ; Start at 10:24; Stop 04/05/18 at 10:25; Status DC Remifentanil HCl (Ultiva) 2 mg STK-MED ONCE IV ; Start 04/05/18 at 10:24; Stop 04/05/18 at 10:25; Status DC Propofol 50 ml @ As Directed STK-MED ONCE IV ; Start 04/05/18 at 10:24; Stop at 10:25; Status DC Propofol 20 ml @ As Directed STK-MED ONCE IV ; Start 04/05/18 at 10:24; Stop at 10:25; Status DC Lidocaine HCl (Lidocaine Pf 2% Vial) 5 ml STK-MED ONCE .ROUTE ; Start 04/05/18 at 10:24; Stop 04/05/18 at 10:25; Status DC Ondansetron HCl (Zofran) 4 mg STK-MED ONCE .ROUTE ; Start 04/05/18 at 10:24; Stop 04/05/18 at 10:25; Status DC Dexamethasone Sodium Phosphate (Decadron) 20 mg STK-MED ONCE .ROUTE ; Start at 10:24; Stop 04/05/18 at 10:25; Status DC Phenylephrine HCl (Vance-Synephrine Inj) 10 mg STK-MED ONCE .ROUTE ; Start at 10:24; Stop 04/05/18 at 10:25; Status DC Phenylephrine HCl (Vance-Synephrine Inj) 10 mg STK-MED ONCE .ROUTE ; Start at 10:24; Stop 04/05/18 at 10:25; Status DC Glycopyrrolate (Robinul) 1 mg STK-MED ONCE .ROUTE ; Start 04/05/18 at 12:06; Stop 04/05/18 at 12:07; Status DC Propofol 50 ml @ As Directed STK-MED ONCE IV ; Start 04/05/18 at 13:33; Stop at 13:34; Status DC Remifentanil HCl (Ultiva) 2 mg STK-MED ONCE IV ; Start 04/05/18 at 13:37; Stop 04/05/18 at 13:38; Status DC Cefazolin Sodium (Ancef) 1 gm STK-MED ONCE .ROUTE ; Start 04/05/18 at 15:10; Stop 04/05/18 at 15:11; Status DC Cefazolin Sodium (Ancef) 1 gm STK-MED ONCE .ROUTE ; Start 04/05/18 at 15:10; Stop 04/05/18 at 15:11; Status DC Gelatin (Gelfoam Size 12-7mm) 2 each 1X ONCE TP Last administered on at 17:09; Start 04/05/18 at 15:30; Stop 04/05/18 at 15:31; Status DC Propofol 50 ml @ As Directed STK-MED ONCE IV ; Start 04/05/18 at 15:42; Stop at 15:43; Status DC Remifentanil HCl (Ultiva) 1 mg STK-MED ONCE IV ; Start 04/05/18 at 16:51; Stop 04/05/18 at 16:52; Status DC Albuterol Sulfate (Ventolin Neb Soln) 8.5 mg PRN Q6HRS PRN INH SHORTNESS OF BREATH; Start 04/05/18 at 17:15 Atorvastatin Calcium (Lipitor) 40 mg QHS PO Last administered on 04/06/18at 20: 54; Start 04/05/18 at 21:00 Duloxetine HCl (Cymbalta) 60 mg DAILY PO Last administered on 04/07/18at 08:15; Start 04/06/18 at 09:00 Gabapentin (Neurontin) 800 mg TID PO Last administered on 04/07/18 08:15; Start 04/05/18 at 21:00 Lisinopril (Prinivil) 20 mg DAILY PO Last administered on 04/06/18at 08:15; Start 04/06/18 at 09:00 Mirtazapine (Remeron) 15 mg QHS PO Last administered on 04/06/18 20:53; Start 04/05/18 at 21:00 Gelatin (Gelfoam Size 12-7mm) 2 each 1X ONCE TP Last administered on at 17:17; Start 04/05/18 at 17:15; Stop 04/05/18 at 17:18; Status DC Fentanyl Citrate (Fentanyl 2ml Vial) 50 mcg PRN Q2HR PRN IV SEVERE PAIN Last administered on 2/28/19at 20:59; Start 04/05/18 at 17:15 Acetaminophen (Tylenol) 650 mg PRN Q6HRS PRN PO MILD PAIN / TEMP; Start at 17:15 Al Hydroxide/Mg Hydroxide (Mylanta Plus Xs) 30 ml PRN Q3HRS PRN PO HEARTBURN / GAS; Start 04/05/18 at 17:15 Calcium Carbonate/ Glycine (Tums) 500 mg PRN Q3HRS PRN PO INDIGESTION; Start at 17:15 Diphenhydramine HCl (Benadryl) 25 mg PRN Q6HRS PRN PO ITCHING Last administered on 04/07/18at 02:32; Start 04/05/18 at 17:15 Diphenhydramine HCl (Benadryl) 25 mg PRN Q6HRS PRN IV ITCHING; Start 04/05/18 at 17:15 Zolpidem Tartrate (Ambien) 5 mg PRN QHS PRN PO INSOMNIA, MAY REPEAT IN 1HR; Start 04/05/18 at 17:15 Naloxone HCl (Narcan) 0.1 mg PRN Q2MIN PRN IV ADMIN; Start 04/05/18 at 17:15 Sodium Chloride (Normal Saline Flush) 3 ml QSHIFT PRN IV AFTER MEDS AND BLOOD DRAWS; Start 04/05/18 at 17:15 Potassium Chloride/Dextrose/ Sod Cl 1,000 ml @ 75 mls/hr [id number] IV Last administered on 04/05/18at 20:49; Start 04/05/18 at 17:04; Stop 04/06/18 at 08:24 ; Status DC Methocarbamol (Robaxin) 750 mg TID PO Last administered on 04/07/18at 08:15; Start 04/05/18 at 21:00 Docusate Sodium (Colace) 100 mg BID PO Last administered on 04/07/18at 08:16; Start 04/05/18 at 21:00 Magnesium Hydroxide (Milk Of Magnesia) 2,400 mg PRN Q12HR PRN PO CONSTIPATION; Start 04/05/18 at 17:15 Ondansetron HCl (Zofran) 4 mg PRN Q6HRS PRN IV NAUESA, 1ST CHOICE; Start at 17:15 Cefazolin Sodium 1 gm/Dextrose 50 ml @ 100 mls/hr Q8HRS IV Last administered on 04/06/18at 13:32; Start 04/05/18 at 22:00; Stop 04/06/18 at 14:29; Status DC Oxycodone/ Acetaminophen (Percocet 10/325) 1 tab PRN Q4HRS PRN PO SEVERE PAIN Last administered on 04/07/18at 10:29; Start 04/05/18 at 17:15 Hydrochlorothiazide (Microzide) 12.5 mg DAILY PO Last administered on at 08:15; Start 04/06/18 at 09:00 Ondansetron HCl (Zofran) 4 mg PRN Q6HRS PRN IV NAUSEA/VOMITING; Start 04/05/18 at 18:15; Stop 04/06/18 at 18:14; Status DC Ringer's Solution 1,000 ml @ 30 mls/hr Q24H IV Last administered on 04/05/18at 18:12; Start 04/05/18 at 18:03; Stop 04/06/18 at 06:02; Status DC Lidocaine HCl (Xylocaine-Mpf 1% 2ml Vial) 2 ml PRN 1X PRN ID PRIOR TO IV START ; Start 04/05/18 at 18:15; Stop 04/05/18 at 22:00; Status DC Prochlorperazine Edisylate (Compazine) 5 mg PACU PRN PRN IV NAUSEA, MRX1; Start 04/05/18 at 18:15; Stop 04/05/18 at 18:23; Status DC Fentanyl Citrate (Fentanyl 2ml Vial) 25 mcg PRN Q5MIN PRN IV MILD PAIN; Start 04/05/18 at 18:30; Stop 04/06/18 at 18:29; Status DC Fentanyl Citrate (Fentanyl 2ml Vial) 50 mcg PRN Q5MIN PRN IV MODERATE TO SEVERE PAIN Last administered on 04/05/18at 18:42; Start 04/05/18 at 18:30; Stop 04/06/18 at 18:29; Status DC Hydromorphone HCl (Dilaudid) 0.5 mg PRN Q10MIN PRN IV SEV PAIN, Second choice; Start 04/05/18 at 18:30; Stop 04/06/18 at 18:29; Status DC Prochlorperazine Edisylate (Compazine) 5 mg PACU PRN PRN IV NAUSEA, MRX1 Last administered on 04/05/18at 18:42; Start 04/05/18 at 18:30; Stop 04/06/18 at 18:29 ; Status DC Active Scripts Active Methocarbamol 750 Mg Tablet 750 Mg PO TID Colace (Docusate Sodium) 100 Mg Capsule 100 Mg PO BID Reported Percocet 10-325 Mg Tablet (Oxycodone/Acetaminophen) 1 Each Tablet 1 Tab PO PRN Q6HRS PRN Proair Hfa Inhaler (Albuterol Sulfate) 8.5 Gm Hfa.aer.ad 1 Puff INH PRN Q6HRS PRN Not used while in hosp. May resume at home as directed. Testosterone Cypionate 200 Mg/1 Ml Vial 1 Ml IM WEEKLY Not given while in hosp. May resume at home as directed Mirtazapine 15 Mg Tablet 15 Mg PO HS LAST DOSE GIVEN: DATE:10-08-15 TIME:9:00 p.m. NEXT DOSE DUE: DATE:10-09-15 TIME:9:00 p.m. Gabapentin 800 Mg Tablet 800 Mg PO TID LAST DOSE GIVEN: DATE:10-09-15 TIME:8:30 a.m. NEXT DOSE DUE: DATE:10-09-15 TIME:2:00 p.m. Lisinopril-Hctz 20-12.5 Mg Tab (Lisinopril/Hydrochlorothiazide) 1 Each Tablet 1 Tab PO DAILY Not given this a.m. due to low blood pressure. Take blood pressure before taking if systolic 100 or below do not give. Cymbalta (Duloxetine Hcl) 60 Mg Capsule.dr 60 Mg PO DAILY LAST DOSE GIVEN: DATE:10-09-15 TIME:8:30 a.m. NEXT DOSE DUE: DATE:10-10-15 TIME:8:30 a.m. Atorvastatin Calcium 40 Mg Tablet 40 Mg PO DAILY LAST DOSE GIVEN: DATE:10-07-15 TIME:9:00 p.m. NEXT DOSE DUE: DATE:10-09-15 TIME:9:00 p.m. Vitals/I & O Vital Sign - Last 24 Hours 04/06/18 04/06/18 04/06/1804/06/19 15:30 15:30 19:00 19:43 Temp 99.0 99.0 Pulse 76 74 76 Resp 24 20 B/P (MAP) 84/51 (62) 96/63 (74) 112/60 (77) Pulse Ox 92 O2 Delivery Room Air Room Air 04/06/18 04/06/18 04/06/18 04/06/18 20:45 20:59 21:30 23:00 Temp 98.7 98.7 Pulse 69 Resp 20 20 20 B/P (MAP) 90/42 (58) Pulse Ox 91 O2 Delivery Room Air Room Air Room Air 04/07/18 04/07/18 04/07/18 04/07/18 02:29 02:33 03:30 06:15 Pulse 72 Resp 20 16 20 B/P (MAP) 99/40 (59) O2 Delivery Room Air Room Air 04/07/18 04/07/18 04/07/18 04/07/18 06:48 08:18 08:30 10:29 Temp 98.7 98.7 Pulse 74 74 Resp 20 B/P (MAP) 88/50 (63) 88/50 Pulse Ox 92 O2 Delivery Room Air Room Air Room Air 04/07/18 11:01 Temp 98.3 98.3 Pulse 74 Resp 16 B/P (MAP) 126/70 (88) O2 Delivery Room Air Intake and Output 04/06/18 04/06/18 04/07/18 15:00 23:00 07:00 Intake Total 850 ml 740 ml Output Total 300 ml 0 ml Balance 850 ml 440 ml 0 ml MATT FOUNTAIN APRN Apr 07, 2018 13:09
--- NOTE | 2018-04-07 14:45 | NUR ---
Discharged to [facility] per w/c transportation, see instruction sheet for details, report called to [facility], belongings taken with patient
--- NOTE | 2018-04-10 14:13 | PATHOLOGY ---
[facility] Accession Number: [id number] . 01 Material submitted: . LUMBAR DECOMPRESSION . 01 Clinical history: . Lumbar stenosis, scoliosis, radiculopathy, lower back pain . 02 Diagnosis: Segments of fibrocartilaginous, fibroadipose, and skeletal muscle tissue and bone, lumbar decompression: - Degenerative changes of fibrocartilaginous tissue. ([facility] 04/10/2018) P/04/10/2018 . 02 Comment: There is no evidence of an acute inflammatory process or malignancy. ([facility] 04/10/2018) . 02 Electronically signed: . Asad Tubbs MD, Pathologist NPI- [id number] . 01 Gross description: . Received in formalin labeled "Ignacio Ghotra, lumbar decompression," are several pieces of glistening, fibrous tissue measuring 5.0 x 3.4 x 1.9 cm in aggregate dimensions, containing small fragments of possible bone. The tissue is submitted representatively in cassette A1, following decalcification. ([facility]; 04/06/2018) TOB/TOB . 02 Pathologist provided ICD-10: M51.36 . 02 CPT . 058011 Specimen Comment: A courtesy copy of this report has been sent to Specimen Comment: [phone], . Specimen Comment: Report sent to / DR VICTORIA Specimen Comment: A duplicate report has been generated due to demographic updates. Performed at: 01 [facility] [address], [place] [id number] MD Shawn Arrington MD Phone: [phone] Performed at: 02 [facility] [address], [place] [id number] MD Asad Tubbs MD Phone: [phone]
--- NOTE | 2018-04-11 21:23 | OP ---
DATE OF SURGERY: 04/05/2018 PREOPERATIVE DIAGNOSES: 1. Lumbar spinal stenosis L4-L5. 2. Degenerative scoliosis of lumbar spine. OPERATION PERFORMED: 1. Lumbar laminectomy, L4-L5. 2. Posterior instrumentation, L4, L5, S1. 3. Posterolateral fusion, L4, L5, S1. 4. The operation included realignment of scoliosis with indirect foraminal decompression, L4, L5, S1. 5. A lumbar discectomy was performed at L4-L5. SURGEON: Dain Watts M.D. CHIEF PRIVACY OFFICER: LUPE Patel. The operation included monitoring including triggered EMGs and SSEP as well as fluoroscopy, microscopic dissection. OPERATIVE INDICATIONS: The patient is a pleasant 63-year-old that developed severe intractable back pain along with lower extremity pain related to severe lumbar spinal stenosis. I recommended a decompression and instrumentation to help deal with these problems. He understood the surgery and the risks. He wished to go ahead. DESCRIPTION OF PROCEDURE: Following general endotracheal anesthesia, the patient was positioned prone on the Bridger table. Lumbar region prepped and draped in the standard fashion. KAYLA hose and AV impulse boots were applied for DVT prophylaxis. A microscope was draped. Fluoroscopy was draped and brought in the field. Monitoring was established. Ancef 2 grams was given less than 1 hour prior to initiating the surgery and repeated at 4-hour intervals. Iliac pins were placed into the left iliac crest and the Brain[employer] system was initialized. I then made a midline incision extending from L4 through S1. I dissected down the skin and subcutaneous tissue, reflected the paraspinal muscles. I exposed the transverse processes and lateral facets as well bilaterally. I brought in the Brain[employer] system and I drilled in the posterior aspect of the pedicles of L4, L5 and S1 using anatomic landmarks as well as the BrainLAB and passed a black ball followed by tap and then I covered these openings with bone wax, both on the left side and on the right side. I then performed a laminectomy removing the spinous processes and then the lamina of L4 and L5 to fully decompress the entire region. A high speed air drill was used as well and I used the microscope and microscopic technique as well as small amounts of bone wax. I did perform partial foraminotomies. Following this decompression and removal of the ligamentum flavum, I gently retracted the dura medially and palpated disc on right which was very soft. I elected to preform a discectomy by first incising the ligament and annulus with #11 blade. I then used pituitary rongeurs to perform a discectomy. Following this the area was well decompressed. I then excoriated the transverse processes and lateral facets of L4, L5 and S1. I aspirated 20 mL of bone marrow and supplemented the allograft bone with this. I then packed allograft bone mixed with the autograft bone from the laminectomy into both lateral gutters. Screws were then placed using the [employer]24 System and screws were placed at L4, L5 and S1 without difficulty. I then placed the connecting rods and did work and realigned gently the lumbar spine to help deal with the scoliosis. Following this, then I irrigated copiously. I did obtain excellent hemostasis after removal of retractors in the muscle and I closed the wound in layers with absorbable suture and the skin was closed with 4-0 subcuticular stitch. The operation went very well and the patient was taken uneventfully to Recovery Room. I was quite pleased with the surgery. DAIN WATTS MD DR: JOSELO/lynda JOB#: [id number] / [id number] PUSHPA
== END 2018-04-07 14:45 | DRG 460 ==
LOC: OPSVCIP 07:48 → OBSVTOIN 07:48 → 4 SOUTHEST 19:02
PROVIDERS: ADMIT Neurological Surgery; ATTEND Neurological Surgery
PROC: 0SG3071 Fusion of Lumbosacral Joint with Autologous Tissue Substitute, Posterior Approach, Posterior Column, Open Approach (ICD-10-PCS; 2018-04-05)
PROC: 01NB0ZZ Release Lumbar Nerve, Open Approach (ICD-10-PCS; 2018-04-05)
PROC: 0SB20ZZ Excision of Lumbar Vertebral Disc, Open Approach (ICD-10-PCS; 2018-04-05)
PROC: 0QS004Z Reposition Lumbar Vertebra with Internal Fixation Device, Open Approach (ICD-10-PCS; 2018-04-05)
PROC: 4A11X4G Monitoring of Peripheral Nervous Electrical Activity, Intraoperative, External Approach (ICD-10-PCS; 2018-04-05)
PROC: 0SG0071 Fusion of Lumbar Vertebral Joint with Autologous Tissue Substitute, Posterior Approach, Posterior Column, Open Approach (ICD-10-PCS; principal; 2018-04-05 10:30)
DX: M48.062 Spinal stenosis, lumbar region with neurogenic claudication (principal); M41.26 Other idiopathic scoliosis, lumbar region; M54.16 Radiculopathy, lumbar region; M19.90 Unspecified osteoarthritis, unspecified site; I10 Essential (primary) hypertension; J45.909 Unspecified asthma, uncomplicated; Z87.891 Personal history of nicotine dependence; Z82.49 Family history of ischemic heart disease and other diseases of the circulatory system; Z80.9 Family history of malignant neoplasm, unspecified
CPT/HCPCS: 36415; 72131; 76000; 86850; 86900; 86901; 88304; 88311; A7015; C1713; J0690; J0696; J0780; J1100; J1885; J2001; J2250; J2405; J2704; J3010; J3490; J7030; J7120; Q0163; 97110; 97116; 97530

== ENCOUNTER → 2018-06-21 | Outpatient (CLI) | payer MEDICARE, OTHER ==
[~2018-06-21] MED LIST changes: -BACITRACIN 50,000 UNIT in IV NORMAL SALINE 1000ML BAG 1,000 ML IRR ONE; -BUPIVAC MPF-EPI 0.5%-1:200000 30 ML VIAL. ONE; -GELATIN SPONGE SIZE 12-7MM SPONGE. TP ONE; -HYDROmorphone 2 MG/ML VIAL IV PRN; -KETOROLAC 60 MG/2 ML INJ FOR OR. ONE; -LIDOCAINE 1% PF 2 ML VIAL. ID PRN; +METH750T2 PO; -ONDANSETRON PF 4 MG/2 ML VIAL. IV PRN; -PROCHLORPERAZINE 10 MG/2 ML VIAL. IV PRN; -THROMBIN TOPICAL 20,000 UNIT SPRAY.SYRN KIT TP ONE; -fentaNYL PF VIAL 100 MCG/2 ML VIAL IV PRN
--- NOTE | 2018-06-21 10:51 | RAD ---
Two-view lumbar spine dated 06/21/2018. Comparison made to CT dated 04/05/2018. CLINICAL INDICATION: Postop fusion. Follow-up. FINDINGS: 2 views lumbar spine show interval posterior lateral fusion from L3 to L5. Posterior fusion rods and transpedicular screws in place. No radiolucency along the screw margins. There is moderate levoconvex scoliotic curvature, unchanged. Sagittal alignment is anatomic. Vertebral body heights are maintained. Mild to moderate endplate hypertrophic changes throughout. Multilevel facet arthropathy. IMPRESSION: 1. Posterior lateral fusion from L3 to L5 with no apparent complication. 2. Multilevel spondylosis with scoliotic curvature. Electronically signed by: Lonny Fournier MD (06/21/2018 10:49 AM) [id number]
== END | disposition home or self-care (01) ==
LOC: RAD 09:51
PROVIDERS: ATTEND Neurological Surgery
DX: M47.816 Spondylosis without myelopathy or radiculopathy, lumbar region (principal); M41.86 Other forms of scoliosis, lumbar region; M12.88 Other specific arthropathies, not elsewhere classified, other specified site; Z98.1 Arthrodesis status
CPT/HCPCS: 72100

== ENCOUNTER 2020-08-25 11:08 | Emergency (ER) | payer OTHER, MEDICARE ==
[~2020-08-25] VITALS: Ht 185.4 cm; Wt 82.4 kg
[~2020-08-25 11:08] MED LIST changes: +LISI1TAB37 PO; -LISI1TAB5 PO; +METH-562 PO; -METH750T2 PO; +MIRT-7 PO; -MIRT15TA3 PO
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
[2020-08-25 15:25] VITALS: BP 120/71
== END 2020-08-25 15:36 | disposition home or self-care (01) ==
LOC: ER 11:08
DX: S13.9XXA Sprain of joints and ligaments of unspecified parts of neck, initial encounter (principal); M54.41 Lumbago with sciatica, right side; M54.42 Lumbago with sciatica, left side; M41.9 Scoliosis, unspecified; R51.9 Headache, unspecified; V47.6XXA Car passenger injured in collision with fixed or stationary object in traffic accident, initial encounter; Y92.488 Other paved roadways as the place of occurrence of the external cause; Y93.89 Activity, other specified; Y99.8 Other external cause status
CPT/HCPCS: 70450; 71250; 72125; 74176; 99285-25